=== PATIENT | female | born 1950 | race Caucasian/White ===

== ENCOUNTER 2020-10-08 08:41 | Emergency (ER) | payer MEDICAID, MEDICARE ==
[~2020-10-08] VITALS: Ht 160 cm; Wt 82.6 kg
[2020-10-08 08:57] VITALS: BP_SYST 155
--- NOTE | 2020-10-08 09:00 | NUR ---
placed in bed 2 by rachel Rinaldi
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
--- NOTE | 2020-10-08 09:55 | NUR ---
ER at bedside examining patient.
[2020-10-08] MEDS ORDERED: PRED20TA PO (10:03)
[2020-10-08] MEDS ORDERED: IBUP-1971 PO (10:03)
[2020-10-08] MEDS ORDERED: CLIN300C12 PO (10:03)
--- NOTE | 2020-10-08 10:20 | NUR ---
Patient given written and verbal discharge instructions and verbalizes understanding. ER MD Guerrero discussed with patient the results and treatment provided. Patient in stable condition. ID arm band removed. Rx of Clindamycin, Ibuprofen, and Prednisone given. Patient educated on pain management and to follow up with PMD. Pain Scale 0. Opportunity for questions provided and answered. Medication side effect fact sheet provided.
[2020-10-08 10:24] VITALS: BP_SYST 140
== END 2020-10-08 10:20 | disposition home or self-care (01) ==
LOC: SED 08:41
DX: L03.115 Cellulitis of right lower limb (principal); R21 Rash and other nonspecific skin eruption; I10 Essential (primary) hypertension; E11.9 Type 2 diabetes mellitus without complications; Z88.0 Allergy status to penicillin
CPT/HCPCS: 99283

== ENCOUNTER 2023-12-19 18:57 | Emergency (ER) | payer MEDICARE, MEDICAID ==
[~2023-12-19] VITALS: Ht 160 cm; Wt 77.1 kg
[~2023-12-19 18:57] MED LIST: CLIN-142 PO; IBUP-1971 PO; PRED20TA PO
[2023-12-19 19:13] VITALS: BP_SYST 175; PULSE 84; RESP 16; TEMP 98.1; O2SAT 96
[2023-12-19 19:33] LABS: BILIRUBIN,URINE NEGATIVE (NEGATIVE); BLOOD, URINE NEGATIVE (NEGATIVE); CLARITY/URINE CLEAR (CLEAR); COLOR,URINE YELLOW (YELLOW); GLUCOSE,URINE 3+ (NEGATIVE); KETONES,URINE NEGATIVE (NEGATIVE); NITRITE, URINE NEGATIVE (NEGATIVE); PROTEIN URINE NEGATIVE (NEGATIVE); UROBILINOGEN,URINE 0.2 (0.2-1.0)
[2023-12-19 19:43] LABS: BACTERIA,URINE FEW /HPF (None Seen); LEUKOCYTE ESTERASE ,URINE 1+ (NEGATIVE); RBC,URINE NONE SEEN /HPF (0-3)
[2023-12-19 19:44] LABS: MUCUS,URINE None Seen /LPF (None Seen)
[2023-12-19] MEDS ORDERED: KETOROLAC TROMETHAMINE 60 MG/2 ML VIAL IM ONE (19:45)
[2023-12-19] MEDS ORDERED: CIPR500T5 PO (19:51)
[2023-12-19 19:57] VITALS: BP_SYST 148; PULSE 84; RESP 16; TEMP 98.1; O2SAT 96
== END 2023-12-19 19:59 | disposition home or self-care (01) ==
LOC: SED 18:57
DX: N39.0 Urinary tract infection, site not specified (principal); M54.9 Dorsalgia, unspecified; E11.9 Type 2 diabetes mellitus without complications; I10 Essential (primary) hypertension; Z90.49 Acquired absence of other specified parts of digestive tract; Z90.710 Acquired absence of both cervix and uterus; Z88.0 Allergy status to penicillin; Z79.899 Other long term (current) drug therapy; Z79.2 Long term (current) use of antibiotics
CPT/HCPCS: 81000; 81001; 81015; 87086; 99283